=== PATIENT | female | born 1950 | race American Indian/Alaskan Native ===

== ENCOUNTER 2017-11-27 13:42 | Emergency (ER) | payer MEDICARE, OTHER ==
[~2017-11-27] VITALS: Ht 172.7 cm; Wt 104.3 kg
[~2017-11-27 13:42] MED LIST: ACET500; AMIT25 PO; ATOR40TA PO; CIPDEXSU; CIPHYDOTSU OT; CIPR500 PO; CYCL10 PO; ERGO50000 PO; FAMO20 PO; FISH1000 PO; HYDACE5; HYDACE5 PO; HYDACE5325 PO; KETO10 PO; LORA.5; NEOPOLHYDS OT; OXYACE5T PO; PARO20; PARO20 PO; ROSU10TA PO; RXOXYACE PO; SULTRIDS PO; TRAM50 PO
[2017-11-27] MEDS ORDERED: CEPH500 (14:17)
[2017-11-27 14:46] LABS: BASOPHILS ABSOLUTE AUTO 0.13 K/mm3 (0.00-0.23); BASOPHILS PERCENT AUTO 2 % (0-2); EOSINOPHILS ABSOLUTE AUTO 0.33 K/mm3 (0.00-0.68); EOSINOPHILS PERCENT AUTO 4 % (0-6); Hematocrit 45.1 % (33.0-51.0); Hemoglobin 14.8 g/dL (11.5-16.0); IMMATURE GRAN ABSOLUTE AUTO 0.01 K/mm3 (0.00-0.10); IMMATURE GRAN PERCENT AUTO 0 % (0-1); LYMPHOCYTES ABSOLUTE AUTO 1.73 K/mm3 (0.84-5.20); LYMPHOCYTES PERCENT AUTO 22 % (21-46); MONOCYTES ABSOLUTE AUTO 0.69 K/mm3 (0.16-1.47); MONOCYTES PERCENT AUTO 9 % (4-13); Mean Corpuscular HGB 31.3 pg (26.0-34.0); Mean Corpuscular HGB Conc 32.8 g/dL (31.5-36.5); Mean Corpuscular Volume 95 fL (80-100); Mean Platelet Volume 9.1 fL (9.1-12.4); NEUTROPHILS ABSOLUTE AUTO 5.11 K/mm3 (1.96-9.15); NEUTROPHILS PERCENT AUTO 64 % (41-73); Platelet Count 208 K/mm3 (150-400); RDW Coefficient Variation 12.2 % (11.7-14.2); RDW Standard Deviation 42.7 fL (35.1-46.3); Red Blood Cell Count 4.73 M/mm3 (3.80-5.20)
[2017-11-27 14:59] LABS: Alanine Aminotransfer (ALT/SGP 19 U/L (12-78); Albumin, Blood 3.6 g/dL (3.4-5.0); Albumin/Globulin Ratio 0.9 (0.8-1.8); Alk Phos 76 U/L (50-136); Anion Gap 4 mmol/L (6-16); Aspartate Aminotrans (AST/SGOT 15 U/L (12-37); Bilirubin, Total 0.4 mg/dL (0.1-1.0); Blood Urea Nitrogen 10 mg/dL (8-24); Bun/Creatinine Ratio 25.4 (12.0-20.0); CO2, Blood 32 mmol/L (21-32); Calcium, Blood 8.4 mg/dL (8.5-10.1); Chloride, Blood 106 mmol/L (98-108); Creatinine, Blood 0.39 mg/dL (0.40-1.00); Globulin, Blood 3.8 g/dL (2.2-4.0); Glomerular Filtration Rate >60 (60-); Glucose, Blood 126 mg/dL (70-99); Potassium, Blood 3.8 mmol/L (3.5-5.5); Sodium, Blood 142 mmol/L (136-145); Total Protein, Blood 7.4 g/dL (6.4-8.2)
[2018-05-11] MEDS ORDERED: BUPR100 PO (14:56)
[2018-05-11] MEDS ORDERED: ASPI81CH PO (14:57)
[2018-05-11] MEDS ORDERED: Norco 10-325 T1 EACH PO (16:19)
== END 2017-11-27 16:22 | disposition home or self-care (01) ==
LOC: ER 13:42
PROVIDERS: Physician Assistant
DX: I82.811 Embolism and thrombosis of superficial veins of right lower extremity (principal); J44.9 Chronic obstructive pulmonary disease, unspecified; F17.210 Nicotine dependence, cigarettes, uncomplicated; Z88.0 Allergy status to penicillin; Z79.899 Other long term (current) drug therapy; Z90.710 Acquired absence of both cervix and uterus
CPT/HCPCS: 36415; 80053; 85025; 93971; 99284

== ENCOUNTER → 2018-01-31 | Outpatient (CLI) | payer MEDICARE, OTHER ==
[~2018-01-31] MED LIST changes: +CEPH500
== END ==
LOC: LAB EV 07:16
DX: R05 Cough (principal)
CPT/HCPCS: 87070; 87077; 87185; 87205

== ENCOUNTER → 2018-11-27 | Outpatient (CLI) | payer MEDICARE, OTHER ==
[~2018-11-27] MED LIST changes: +ASPI81CH PO; +BUPR100 PO; +Norco 10-325 T1 EACH PO
== END ==
LOC: LAB EV 11:10 → LAB SHORT 11:10
DX: N39.0 Urinary tract infection, site not specified (principal)
CPT/HCPCS: 87077; 87086; 87186

== ENCOUNTER → 2018-12-26 | Outpatient (CLI) | payer MEDICARE, OTHER | END | disposition home or self-care (01) | LOC: LAB SHORT 13:00 → LAB EV 13:00 | DX: N39.0 Urinary tract infection, site not specified (principal) | CPT/HCPCS: 87086 ==

== ENCOUNTER → 2019-11-26 | Outpatient (CLI) | payer MEDICARE, OTHER | END | disposition home or self-care (01) | LOC: LAB EV 11:27 → LAB SHORT 11:27 | DX: N39.0 Urinary tract infection, site not specified (principal) | CPT/HCPCS: 87077; 87086; 87186 ==

== ENCOUNTER 2020-05-10 17:54 | Emergency (ER) | payer MEDICARE, OTHER ==
[~2020-05-10] VITALS: Ht 170.2 cm; Wt 104.3 kg
== END 2020-05-10 19:00 | disposition home or self-care (01) ==
LOC: ER 17:54
DX: N39.0 Urinary tract infection, site not specified (principal); Z88.0 Allergy status to penicillin; Z79.899 Other long term (current) drug therapy; Z79.82 Long term (current) use of aspirin; G47.30 Sleep apnea, unspecified; J44.9 Chronic obstructive pulmonary disease, unspecified; F17.210 Nicotine dependence, cigarettes, uncomplicated
CPT/HCPCS: 87077; 87086; 87186; 99282; A9270-GY

== ENCOUNTER → 2020-12-12 | Outpatient (CLI) | payer MEDICARE, OTHER | END | disposition home or self-care (01) | LOC: LAB SHORT 16:00 → PLD 16:00 | DX: N39.0 Urinary tract infection, site not specified (principal) | CPT/HCPCS: 87077; 87086; 87186 ==

== ENCOUNTER 2021-06-08 05:55 | Day surgery (SDC) | payer MEDICARE, OTHER ==
[~2021-06-08] VITALS: Ht 167.6 cm; Wt 106.0 kg
[2021-06-08] MEDS ORDERED: ANORO ELLIPTA1 EACH INH (06:38)
--- NOTE | 2021-06-08 07:20 | NUR ---
History, Chart, Medications and Allergies reviewed before start of procedure. Patient States Post-Procedure ride home has been arranged.
--- NOTE | 2021-06-08 09:07 | NUR ---
06/08/21 0907 Alejandra Torre USED ISOVUE-300 FOR THE CHOLANGIOGRAM 100 MLS.
--- NOTE | 2021-06-08 12:20 | NUR ---
CALLED AT TALKED TO PTS DAUGHTER NITESH ABOUT DC INSTRUCTIONS. ALL QUESTIONS ANSWERED. PT [place] [facility].
--- NOTE | 2021-06-08 12:47 | NUR ---
Discharge instructions reviewed with patient. Patient verbalizes understanding. Copy given to patient to take home. [place] [facility].
== END 2021-06-08 12:55 | disposition home or self-care (01) ==
LOC: ORSCMMR 05:55 → ORD 07:30 → ORSCMMR 07:30
PROVIDERS: Surgery
PROC: BF031ZZ Plain Radiography of Gallbladder and Bile Ducts using Low Osmolar Contrast (ICD-10-PCS; principal; 2021-06-08 07:30)
PROC: 0FT44ZZ Resection of Gallbladder, Percutaneous Endoscopic Approach (ICD-10-PCS; principal; 2021-06-08 07:30)
DX: K82.1 Hydrops of gallbladder (principal); K80.10 Calculus of gallbladder with chronic cholecystitis without obstruction; J44.9 Chronic obstructive pulmonary disease, unspecified; F41.8 Other specified anxiety disorders; E78.5 Hyperlipidemia, unspecified; I95.9 Hypotension, unspecified; F17.210 Nicotine dependence, cigarettes, uncomplicated; G47.33 Obstructive sleep apnea (adult) (pediatric); Z79.82 Long term (current) use of aspirin; Z79.899 Other long term (current) drug therapy
CPT/HCPCS: 74300; 88304; A9270; C1729; C1894; J0694; J1100; J2250; J2370; J2405; J2704; J3010; J7120

== ENCOUNTER 2021-06-20 09:40 | Emergency (ER) | payer MEDICARE, OTHER ==
[~2021-06-20] VITALS: Ht 167.6 cm; Wt 99.8 kg
[~2021-06-20 09:40] MED LIST changes: +ANORO ELLIPTA1 EACH INH
[2021-06-20 11:21] LABS: SARS-Cov-2 (COVID-19) PCR, MMC NEGATIVE (NEGATIVE)
== END 2021-06-20 10:11 | disposition home or self-care (01) ==
LOC: ER 09:40
PROVIDERS: Emergency Medicine
DX: Z01.812 Encounter for preprocedural laboratory examination (principal); Z20.822 Contact with and (suspected) exposure to COVID-19; J44.9 Chronic obstructive pulmonary disease, unspecified; F17.210 Nicotine dependence, cigarettes, uncomplicated; G47.30 Sleep apnea, unspecified; Z88.0 Allergy status to penicillin; Z79.899 Other long term (current) drug therapy; Z79.82 Long term (current) use of aspirin; Z90.49 Acquired absence of other specified parts of digestive tract
CPT/HCPCS: 99282; U0004

== ENCOUNTER 2022-03-17 18:56 | Inpatient (IN) | payer MEDICARE, OTHER ==
[~2022-03-17] VITALS: Ht 167.6 cm; Wt 104.3 kg
[2022-03-17 20:06] LABS: BASOPHILS ABSOLUTE AUTO 0.07 K/mm3 (0.00-0.23); BASOPHILS PERCENT AUTO 1 % (0-2); EOSINOPHILS ABSOLUTE AUTO 0.14 K/mm3 (0.00-0.68); EOSINOPHILS PERCENT AUTO 1 % (0-6); Hematocrit 51.4 % (33.0-51.0); IMMATURE GRAN ABSOLUTE AUTO 0.03 K/mm3 (0.00-0.10); IMMATURE GRAN PERCENT AUTO 0 % (0-1); LYMPHOCYTES ABSOLUTE AUTO 1.53 K/mm3 (0.84-5.20); LYMPHOCYTES PERCENT AUTO 14 % (21-46); MONOCYTES ABSOLUTE AUTO 1.02 K/mm3 (0.16-1.47); MONOCYTES PERCENT AUTO 10 % (4-13); Mean Corpuscular HGB Conc 33.1 g/dL (31.5-36.5); Mean Corpuscular Volume 97 fL (80-100); Mean Platelet Volume 8.8 fL (9.1-12.4); NEUTROPHILS ABSOLUTE AUTO 7.85 K/mm3 (1.96-9.15); NEUTROPHILS PERCENT AUTO 74 % (41-73); Platelet Count 169 K/mm3 (150-400); RDW Coefficient Variation 13.3 % (11.7-14.2); RDW Standard Deviation 47.3 fL (35.1-46.3); Red Blood Cell Count 5.32 M/mm3 (3.80-5.20); White Blood Cell Count 10.64 K/mm3 (4.00-11.30)
[2022-03-17 20:27] LABS: Albumin, Blood 3.6 g/dL (3.4-5.0); Albumin/Globulin Ratio 0.9 (0.8-1.8); Bilirubin, Total 0.5 mg/dL (0.1-1.0); Bun/Creatinine Ratio 24.1 (12.0-20.0); Calcium, Blood 8.5 mg/dL (8.5-10.1); Creatinine, Blood 0.5 mg/dL (0.40-1.00); Globulin, Blood 4.1 g/dL (2.2-4.0); Potassium, Blood 3.9 mmol/L (3.5-5.5); Total Protein, Blood 7.7 g/dL (6.4-8.2)
[2022-03-17 20:48] LABS: Base Excess Venous 2.4 mmol/L; Bicarbonate Venous 24.8 mmol/L (24.0-30.0); PCO2 Venous 61.4 mmHg (38-42); PO2 Venous 101 mmHg (38-42); pH Blood Venous 7.28 (7.34-7.37)
[2022-03-17 21:04] LABS: Influenza A, PCR NEGATIVE (NEGATIVE); Influenza B, PCR NEGATIVE (NEGATIVE); Resp Syncytial Virus, PCR NEGATIVE (NEGATIVE); SARS-Cov-2 (COVID-19) PCR, MMC NEGATIVE (NEGATIVE)
--- NOTE | 2022-03-18 00:32 | NUR ---
0030 recieved report from ED RN Eliana. Pt to go into room 13 PCU
[2022-03-18 00:48] LABS: Base Excess Venous 4.2 mmol/L; Bicarbonate Venous 25.5 mmol/L (24.0-30.0); PCO2 Venous 64.3 mmHg (38-42); pH Blood Venous 7.29 (7.34-7.37)
[2022-03-18 02:44] LABS: BASOPHILS ABSOLUTE AUTO 0.02 K/mm3 (0.00-0.23); BASOPHILS PERCENT AUTO 0 % (0-2); EOSINOPHILS PERCENT AUTO 0 % (0-6); Hematocrit 48.8 % (33.0-51.0); IMMATURE GRAN ABSOLUTE AUTO 0.02 K/mm3 (0.00-0.10); IMMATURE GRAN PERCENT AUTO 0 % (0-1); LYMPHOCYTES ABSOLUTE AUTO 0.44 K/mm3 (0.84-5.20); LYMPHOCYTES PERCENT AUTO 6 % (21-46); MONOCYTES ABSOLUTE AUTO 0.06 K/mm3 (0.16-1.47); MONOCYTES PERCENT AUTO 1 % (4-13); Mean Corpuscular HGB Conc 32.8 g/dL (31.5-36.5); Mean Corpuscular Volume 98 fL (80-100); NEUTROPHILS ABSOLUTE AUTO 6.51 K/mm3 (1.96-9.15); NEUTROPHILS PERCENT AUTO 92 % (41-73); Platelet Count 158 K/mm3 (150-400); RDW Coefficient Variation 13.2 % (11.7-14.2); RDW Standard Deviation 47.8 fL (35.1-46.3); White Blood Cell Count 7.05 K/mm3 (4.00-11.30)
[2022-03-18 03:03] LABS: Bun/Creatinine Ratio 21.5 (12.0-20.0); Calcium, Blood 8.1 mg/dL (8.5-10.1); Creatinine, Blood 0.51 mg/dL (0.40-1.00); Potassium, Blood 4.2 mmol/L (3.5-5.5)
--- NOTE | 2022-03-18 06:27 | NUR ---
Overnight without issues, VSS, BiPaP/CPAP on from 0130- now with good sats 5L bleeding in. Pain in back and Neck Chronic managed well with current regimine, will continue to monitor EMMY Dale
[2022-03-18 10:51] LABS: Adenovirus F 40/41 Not Detected (NOT DETECT); Astrovirus Not Detected (NOT DETECT); Campylobacter Sp Not Detected (NOT DETECT); Cryptosporidium Not Detected (NOT DETECT); Cyclospora Cayetanensis Not Detected (NOT DETECT); E. Coli O157 Not Detected (NOT DETECT); Entamoeba Histolytica Not Detected (NOT DETECT); Enteroaggregative E. coli-EAEC Not Detected (NOT DETECT); Enteropathogenic E. coli-EPEC Not Detected (NOT DETECT); Enterotoxigenic E. coli-ETEC Not Detected (NOT DETECT); Giardia Lamblia Not Detected (NOT DETECT); Norovirus GI/GII Not Detected (NOT DETECT); Plesiomonas Shigelloides Not Detected (NOT DETECT); Rotavirus A Not Detected (NOT DETECT); Salmonella Sp Not Detected (NOT DETECT); Sapovirus Not Detected (NOT DETECT); Shiga Toxin-prod E. coli-STEC Not Detected (NOT DETECT); Shigella/Enteroin E. coli-EIEC Not Detected (NOT DETECT); Vibrio Cholerae Not Detected (NOT DETECT); Vibrio Sp Not Detected (NOT DETECT); Yersinia Enterocolitica Not Detected (NOT DETECT)
--- NOTE | 2022-03-18 12:44 | NUR ---
AM NOTE: PATIENT ALERT AND ORIENTED X4. NEURO WNL. UP TO BSC WITH ONE PERSON ASSIST AND CANE. TELE SHOWING SINUS RHYTHM WITH HR 90'S. DENIES CHEST PAIN/PRESSURE. TRENDING TROPS. BP STABLE. ON 3L NASAL CANNULA SATING LOW 90'S. AT TIMES EXPIRATORY WHEEZE. RESP CARE BREATHING TREATMENTS. OCCASIONAL HARSH HACKING COUGH. PRODUCING SPUTUM. COMPLAINS OF LOWER BACK/NECK PAIN - MEDICATED PER EMAR. STOOL SAMPLE SENT THIS AM, RESULTS NEGATIVE. ISO REMOVED. PATIENT STATES SHE HAS BEEN HAVING INTERMIT DIARRHEA. LOOSE STOOL THIS AM X1. CALL LIGHT IN REACH. WILL CONTINUE TO MONITOR.
--- NOTE | 2022-03-18 18:48 | NUR ---
SHIFT SUMMARY: SEE PREVIOUS NOTE FOR UPDATES. NO ACUTE CHANGES. VITAL SIGNS REMAINS STABLE. OCCASIONAL HARSH COUGHING. PRN COUGH MEDICATION GIVEN. COMPLAINED OF LOWER BACK PAIN. MEDICATED PER EMAR. REMAINS ON 3L NASAL CANNULA. WORKING WITH CASE MANAGEMENT FOR HOME O2. EATING WELL. DENIES NEEDS. CALL LIGHT IN REACH. WILL CONTINUE TO MONITOR AND REPORT OFF.
--- NOTE | 2022-03-19 03:44 | NUR ---
Overnoc summary: overnight without issues, VSS, home CPAP 3L bleeding in for most of night, switching from NC 4L to CPAP with good sats ~88-95%, pain managed with Tramadol, but she wishes to switch back to her normal [place] 10 for better coverage, pain mostly in lower back, neck and some BLE neuropathy, will continue to monitor EMMY Dale
--- NOTE | 2022-03-19 13:50 | NUR ---
AM NOTE: PATIENT ALERT AND ORIENTED. NO NEW CHANGES THROUGHOUT THE MORNING, SEE PREVIOUS NOTES. TELE SHOWING SINUS TACH WITH HR 100-110'S. DENIES CHEST PAIN/PRESSURE. ON 4L NASAL CANNULA SATING LOW 90'S. WHEN SLEEPING WAS USING HOME CPAP WITH 3-4L BLEED IN. [place] IN TO DROP OFF AND EDUCATE ON TRILOGY. HOME O2 BROUGHT IN. HOME O2 EVAL DONE. COMPLAINS OF HEADACHE THROUGHOUT AM. SEE EMAR FOR MED ADMINISTRATION, TRYING TYLENOL NOW. UP TO BSC WITH ONE PERSON ASSIST. DENIES ANY OTHER NEEDS AT THIS TIME. WILL CONTINUE TO MONITOR.
--- NOTE | 2022-03-19 18:40 | NUR ---
SHIFT SUMMARY: NO ACUTE CHANGES THIS SHIFT. SEE AM NOTE FOR UPDATES. REMAINS ON 4L NASAL CANNULA SATING ABOVE 94%. NO CHANGES TO TELE - REMAINS SINUS TACH. COMPLAINS OF HEADACHE RELIEVED WITH BOTH ULTRAM AND TYLENOL. ABLE TO SHOWER TODAY. DENIES NEEDS AT THIS TIME. CALL LIGHT IN REACH. WILL CONITNUE TO MONITOR AND REPORT OFF TO ONCOMING RN.
--- NOTE | 2022-03-20 04:06 | NUR ---
Overnight with some SOB with activity, O2 needs slightly increased --> home CPAP on most the night with 3L bleed in, pain still there but better than previous night, RT conducting home O2 study, will continue to monitor EMMY Dale
[2022-03-20 17:53] LABS: PCO2 Arterial 78 mmHg (35-45); PO2 Arterial 63.4 mmHg (80-100); pH Blood Arterial 7.31 (7.35-7.45)
--- NOTE | 2022-03-20 18:10 | NUR ---
SHIFT SUMMARY: PATIENT MENTATION CHANGED FROM BASELINE. SLIGHTLY CONFUSED AND IMPULSIVE. THIS RN CALLED DR. SHAFER TO NOTIFY. ABG ORDERED. SEE RESULTS. PATIENT ALSO SUDDEN ONSET OF NAUSEA. NEW ORDERS FOR ZOFRAN. NAUSEA RELIEVED AND BIPAP WITH 4L 02 BLEED IN APPLIED. PATIENT RESTING AT THIS TIME. NO CHANGES IN TELE. WILL CONTINUE TO MONITOR AND REPORT OFF TO ONCOMING RN.
--- NOTE | 2022-03-20 19:57 | NUR ---
Assumed care 1900. Pt was on CPAP at start of shift. Noticed pt pulled off CPAP and placed back on 4L oxygen as RT was walking in. Pt seemed anxious and RR were 24-28. RT placed on BIPAP w/ oxygen bleed in. VSS on BIPAP and RR slowed to 20. Will continute to monitor. Pt appears more comfortable at this time.,
--- NOTE | 2022-03-20 22:12 | NUR ---
Pt pretty restless and has been pulling at BIPAP, frequent reminders to keep BIPAP on. I ask pt if she is in pain or nauseous and she declined. Frequent checks on pt.
--- NOTE | 2022-03-20 23:12 | NUR ---
Hospitalist called and updated on pt and MD wound like new ABGs in the AM after wearing the BIPAP overnight. PRN zofran also ordered.
--- NOTE | 2022-03-21 01:36 | NUR ---
Pt still remains restless and oriented x2-3. BIPAP still in place. Frequently asking pt if she is in pain, but declines pain and no prn meds. Also, asked pt if she is anxious from the BIPAP and she declines. Continues to be impulsive and not using call light, frequent round and bed alarm on.
[2022-03-21 03:51] LABS: PO2 Arterial 76.1 mmHg (80-100); pH Blood Arterial 7.35 (7.35-7.45)
[2022-03-21 03:52] LABS: PCO2 Arterial 74.9 mmHg (35-45)
--- NOTE | 2022-03-21 04:20 | NUR ---
shift nurse manager note: Pt has been on and off alert/lethargic tonight. Impulsive and not calling when needing to get up. Oriented x2-3. Restless overnight and did not sleep. Multiple attempts to make sure pt was comfortable and offered pain meds, but pt declined. BIPAP was worn all night and pt did pull at it several times, reminder of importance of BIPAP to pt. Repeat ABGs were done this AM with BIPAP on all night, see results. VSS on 4L bleed through BIPAP. Tele: ST 90-110s. Pt up to BSC several times with 1-2 person assist due to mentation. [address] and flushing. IV solumedrol given per orders.
--- NOTE | 2022-03-21 06:20 | NUR ---
Pt is desating to low to mid 80s when up to commode on BIPAP w/4L. Takes pt about 1 minute to recover once back in bed.
--- NOTE | 2022-03-21 18:51 | NUR ---
SHIFT SUMMARY: AGITATION, CONFUSION, IMPULSIVENESS CONTINUE T/OUT SHIFT. PT FREQUENTLY EXITING BED/CHAIR DESPITE ALARMS/REDIRECTION/CLOSER OBSERVATION/REPOSITIONING. PT ALSO FREQUENTLY PULLING O2 MASKS/TUBING/MONITORING DEVICES OFF. WHEN PT PULLS O2 MASK/TUBES OFF SHE DESATS QUICKLY TO LOW 80's AND FIGHTS STAFF WHEN TRYING TO REAPPLY. PT ORIENTED TO SELF, LOCATION. PT STATES "BECAUSE I'M CONFUSED" WHEN ASKED WHY SHE IS IN HOSPITAL. MABEL STERLING APPLIED APPROX 1722 FOR SAFETY, PT REMAINS IN BED BUT CONTINUES TO PULL AT O2 DEVICES. SIN TACH ON MONITOR 110-120s. PT UP TO BSC OFTEN W/1-2 PERSON ASSIST. WILL CONTINUE TO MONITOR AND TREAT ACCORDINGLY UNTIL CHANGE OF SHIFT.
--- NOTE | 2022-03-21 19:59 | NUR ---
Assumed care 1900. Pt is alert, but only oriented x1. She knows she is in the hospital, but said she was in [place]. VSS on 4L. HR 100-110s. Pt is agitated and hitting at staff, one time dose of zyprexa was given. Pt has been pulling off oxygen and tele lead as well as oxygen finger probe. MD notified and ordered the one time dose of zyprexa. Will continue to monitor. Pt remains in the pozy vest at thist time. Did get pt up to BSC w/ 2 person assist to void and bladder scanned afterward and only had about 100 left in bladder after up to BSC.
--- NOTE | 2022-03-21 22:16 | NUR ---
Pt became agitated and pulling off trilogy and not cooperative with staff. notified and prn ativan ordered. Pt has also been placed in wrist restraints.
[2022-03-21 22:29] LABS: Source, Urine Foley catheter
[2022-03-21 22:45] LABS: Bilirubin, Urine Neg (Neg); Blood, Urine 3+ (Neg); Glucose Qualitative, Urine Neg (Neg); Ketones, Urine 3+ (Neg); Leukocyte Esterase, Urine Neg (Neg); Nitrite, Urine Neg (Neg); Protein, Urine 3+ (Neg); Urobilinogen, Urine NORM (Normal)
[2022-03-21 22:51] LABS: Appearance, Urine Clear (Clear); Color, Urine Pale Yellow (P-Yellow)
[2022-03-21 22:53] LABS: Squamous Epithelial Cells Not Seen /hpf (Few)
[2022-03-21 22:54] LABS: Bacteria Few /hpf; White Blood Cells, Urine Rare /hpf (0-5)
[2022-03-22 00:04] LABS: Base Excess Venous 16.8 mmol/L; Bicarbonate Venous 36.6 mmol/L (24.0-30.0); PCO2 Venous 59.7 mmHg (38-42); PO2 Venous 48.8 mmHg (38-42); pH Blood Venous 7.44 (7.34-7.37)
--- NOTE | 2022-03-22 01:05 | NUR ---
Dr. Mckinney updated on pt status. Pt remains agitated and confused. Sometimes her language sounds almost like word salad and only oriented to self. Repeats sentences and only oriented to self. VSSon 4L. Her BP is elevated at times which is likely due to agitation. HR has been high 110-130s overnight. Dr. Mckinney added labs and more zyprexa and would like for me to call her back once her labs return. Pt is moving all extremites. Dubose in place now and restraints remain in place for safety and lines.
[2022-03-22 01:07] LABS: BASOPHILS ABSOLUTE AUTO 0.01 K/mm3 (0.00-0.23); BASOPHILS PERCENT AUTO 0 % (0-2); EOSINOPHILS PERCENT AUTO 0 % (0-6); Hematocrit 54.4 % (33.0-51.0); Hemoglobin 17.7 g/dL (11.5-16.0); IMMATURE GRAN ABSOLUTE AUTO 0.04 K/mm3 (0.00-0.10); IMMATURE GRAN PERCENT AUTO 0 % (0-1); LYMPHOCYTES ABSOLUTE AUTO 0.82 K/mm3 (0.84-5.20); LYMPHOCYTES PERCENT AUTO 8 % (21-46); MONOCYTES ABSOLUTE AUTO 1.55 K/mm3 (0.16-1.47); MONOCYTES PERCENT AUTO 15 % (4-13); Mean Corpuscular HGB 31.2 pg (26.0-34.0); Mean Corpuscular HGB Conc 32.5 g/dL (31.5-36.5); Mean Corpuscular Volume 96 fL (80-100); Mean Platelet Volume 8.6 fL (9.1-12.4); NEUTROPHILS ABSOLUTE AUTO 8.29 K/mm3 (1.96-9.15); NEUTROPHILS PERCENT AUTO 77 % (41-73); Platelet Count 232 K/mm3 (150-400); RDW Coefficient Variation 12.4 % (11.7-14.2); RDW Standard Deviation 44.7 fL (35.1-46.3); Red Blood Cell Count 5.68 M/mm3 (3.80-5.20); White Blood Cell Count 10.71 K/mm3 (4.00-11.30)
[2022-03-22 01:24] LABS: Albumin, Blood 3.6 g/dL (3.4-5.0); Anion Gap 5 mmol/L (6-16); Blood Urea Nitrogen 16 mg/dL (8-24); Bun/Creatinine Ratio 45.5 (12.0-20.0); CO2, Blood 39 mmol/L (21-32); Calcium, Blood 8.9 mg/dL (8.5-10.1); Chloride, Blood 93 mmol/L (98-108); Creatinine, Blood 0.35 mg/dL (0.40-1.00); Glomerular Filtration Rate 108 (60-); Glucose, Blood 157 mg/dL (70-99); Magnesium, Blood 2.5 mg/dL (1.6-2.4); Phosphorus, Blood 2.7 mg/dL (2.5-4.9); Potassium, Blood 3.8 mmol/L (3.5-5.5); Sodium, Blood 137 mmol/L (136-145)
--- NOTE | 2022-03-22 01:55 | NUR ---
Spoke with Dr. Mckinney about concern of mentation and speech (word salad and repeating herself over and over and the agitation), MD said she would order CT head STAT and ordered additional meds for agitation.
[2022-03-22 04:05] LABS: Base Excess Venous 16.5 mmol/L; Bicarbonate Venous 36.2 mmol/L (24.0-30.0); PCO2 Venous 64.3 mmHg (38-42); PO2 Venous 66.4 mmHg (38-42); pH Blood Venous 7.41 (7.34-7.37)
--- NOTE | 2022-03-22 04:57 | NUR ---
Spoke with Dr. Mckinney updated that CT results are back. Mentation unchanged. Informed to hold 0600 solumedrol.
--- NOTE | 2022-03-22 05:13 | NUR ---
Stave Planer Tender Note: Pt is alert, but very confused only oriented to self. Pt repeats herself over and over and is having what sounds like word salad. notified of agitation and confusion and a STAT CT head was ordered as well as VBGs, CBC, renal panel, ammonia and Mg. CT was negative for acute findings, told this RN to hold solumedrol this AM and said she would like day shift to look at solumedrol and possible contribution to mentation. VSS on 4L nasal canula most of the night. Only tolerated and kept trilogy on for 1hr. Pt keeps pulling at lines and pulling oxygen off. Pt remained in posy vest and was placed in soft wrist restraints to be able to keep pt safe and from pulling off oxygen. Dubose was placed. Tele: sinus tach 120-130s. BP has been high overnight, especially when really agitated. PRN zyprexa and ativan have been given for agitation.
--- NOTE | 2022-03-22 14:16 | NUR ---
UPDATE PT AWOKE FROM A NAP EXTREMELY AGITATED AND ANGRY. THIS RN AND TWO OTHER STAFF WENT TO THE BEDSIDE TO ATTEMPT TO REDIRECT AND CALM THE PT. THIS WAS UNSUCCESSFUL. PROVIDER WAS NOTIFIED AND ORDERS WERE GIVEN TO TRANSFER TO ICU TO COMPLY WITH BIPAP POLICIES.
--- NOTE | 2022-03-22 15:00 | NUR ---
INITIAL ASSESSMENT PATIENT ARRIVED TO ICU FROM PCU AROUND 1435. PATIENT ORIENTED TO SELF, DAUGHTER AND FOLLOWING SIMPLE COMMANDS. PATIENT STATES SHE LIVES WITH HER MOTHER; UNKNOWN IF THIS IS TRUE. SPEECH GARBLED AND DIFFICULT TO UNDERSTAND, ESPECIALLY WITH AVAPS MASK ON. PATIENT WEAK BUT ABLE TO MOVE ALL EXTREMITIES AND ASSIST WITH REPOSITIONING. PATIENT ANXIOUS WHEN AVAPS MASK ON. PATIENT HAS TEMP OF 99.5 DEGREES FAHRENHEIT. PATIENT ON 3 L NC WHEN ARRIVED. PATIENT PLACED ON AVAPS, 335 MLS OF VOLUME WITH 3 L O2 BLEED IN. PER REPORT, PATIENT WEARS 3 L NC DURING DAY AT HOME AND WEARS THE AVAPS, WITH SAME SETTINGS, AT HOME AT NIGHT. LUNGS DIMINISHED THROUGHOUT. CRACKLES NOTED IN LOWER LOBES. PATIENT NOTED TO HAVE MOIST COUGH. SHALLOW BREATHS NOTED. PATIENT IN ST, HR IN THE 120S. SBP LOW 100S TO 120S. 1+ EDEMA NOTED TO BLES. PATIENT UNABLE TO EAT ON MASK. HYPOACTIVE BOWEL SOUNDS NOTED. LAST BM DOCUMENTED YESTERDAY. LEDEZMA DRAINING DARK ERIN COLORED URINE. BRUISES NOTED TO ABD. COCCYX REDDENED; BLANCHEABLE. MOUTH DRY. NS INFUSING AT 100 MLS/ HOUR. BED LOW, CALL LIGHT IN REACH. WILL CONTINUE TO MONITOR PATIENT FREQUENTLY THROUGHOUT SHIFT.
--- NOTE | 2022-03-22 16:50 | NUR ---
PATIENT AFEBRILE. HR IN THE 1-TEENS. SBP 1-TEENS TO 120S. PRECEDEX AT 0.7 MCG/ KG/ HOUR. NO OTHER ACUTE CHANGES TO NOTE ON AT THIS TIME.
--- NOTE | 2022-03-22 19:00 | NUR ---
ASSUMED CARE ASSUMED CARE OF PATIENT. REMAINS ON AVAPS PER ORDER. PT IS AWAKE AND ALERT, BUT DROWSY. ORIENTED TO SELF. FOLLOWS SIMPLE COMMANDS. MOVES ALL EXTREMITIES. REACHES FOR MASK AND PULLS ON IV LINES/LEDEZMA WHEN RESTRAINTS OFF. BILATERAL SOFT WRIST RESTRAINTS IN PLACE. MONITOR SHOWS NSR, RATE 90s-100s. BP 94/67 AT THIS TIME. PRECEDEX INFUSING AT 0.4MCG/KG/HR. NS INFUSING AT 100CC/HR. LEDEZMA PATENT AND DRAINING TO GRAVITY WITH SMALL AMOUNT DARK ERIN URINE. SEE SHIFT ASSESSMENT FOR FULL ASSESSMENT.
--- NOTE | 2022-03-22 19:00 | NUR ---
SHIFT SUMMARY PATIENT PLACED IN RESTRAINTS AND ON AVAPS MACHINE AFTER ARRIVING FROM PCU. PATIENT REMAINED ANXIOUS AND PULLING AT RESTRAINTS. PATIENT ORIENTED TO SELF, DAUGHTER AND FOLLOWING SOME SIMPLE COMMANDS. PATIENT IMMEDIATELY FORGETTING NOT TO PULL ON LINES/ CORDS AND MASK RIGHT AFTER NURSE ASKED PATIENT NOT TO. PATIENT STARTED ON PRECEDEX TO TRY AND HELP WITH AGITATION. PRECEDEX TOOK A WHILE TO TAKE EFFECT ON PATIENT BUT ONCE IT DID IT DROPPED PATIENT'S BLOOD PRESSURE. PRECEDEX PLACED ON SB UNTIL BP RECOVERED AND THEN PLACED BACK ON LOW DOSE PRECEDEX FOR ESCALATION IN AGITATION ONCE AGAIN. GRANDSON STATED THAT PATIENT TAKES NORCO AT HOME FOR CHRONIC HIP AND LEG PAIN. DR. CHAPMAN CALLED AND INFORMED AND PRN NORCO ORDERED (IF PATIENT ABLE TO SWALLOW). PATIENT REMAINS WEAK BUT ABLE TO MOVE ALL EXTREMITIES. PATIENT HAD SLIGHT TEMP WHEN FIRST ARRIVED BUT WAS AFEBRILE AT LAST CHECK. PATIENT HAS REMAINED ON HOME AVAP WITH VOLUME AT 335 MLS AND WITH 3 L O2 BLEED IN. PATIENT HAS CONTINUED TO HAVE MOIST COUGH. LUNGS REMAINED DIMINISHED. PATIENT SR TO ST, HR 90S TO 120S. SBP 60S TO 130S. NO BM THIS SHIFT. PATIENT REMAINED NPO. LEDEZMA DRAINED 300 MLS OF DARK ERIN COLORED URINE. NO CHANGES TO SKIN. PATIENT REPOSITIONED Q2H. NS REMAINED AT 100 MLS/ HOUR. PRECEDEX IS CURRENTLY AT 0.4 MCG/ KG/ HR. BLOOD SUGAR 110. PATIENT'S DAUGHTER AND GRANDSON CAME IN TO VISIT. BED LOW, CALL LIGHT IN REACH. REPORT HAS BEEN GIVEN TO ASSUMING AUTOCAD DETAILER NURSE.
[2022-03-22 19:10] LABS: PCO2 Arterial 56.6 mmHg (35-45); pH Blood Arterial 7.45 (7.35-7.45)
--- NOTE | 2022-03-22 22:20 | NUR ---
HYPOTENSION/DECREASED UO DR. CHAPMAN NOTIFIED OF BP 60/D AND OF DECREASED URINE OUTPUT. NEW ORDER RECEIVED FOR A 500CC NS BOLUS AND TO CHECK BNP IN AM.
[2022-03-23 04:01] LABS: BASOPHILS ABSOLUTE AUTO 0.01 K/mm3 (0.00-0.23); BASOPHILS PERCENT AUTO 0 % (0-2); EOSINOPHILS ABSOLUTE AUTO 0.06 K/mm3 (0.00-0.68); EOSINOPHILS PERCENT AUTO 1 % (0-6); Hematocrit 47.2 % (33.0-51.0); Hemoglobin 15.1 g/dL (11.5-16.0); IMMATURE GRAN ABSOLUTE AUTO 0.01 K/mm3 (0.00-0.10); IMMATURE GRAN PERCENT AUTO 0 % (0-1); LYMPHOCYTES ABSOLUTE AUTO 1.16 K/mm3 (0.84-5.20); LYMPHOCYTES PERCENT AUTO 17 % (21-46); MONOCYTES ABSOLUTE AUTO 0.96 K/mm3 (0.16-1.47); MONOCYTES PERCENT AUTO 14 % (4-13); Mean Corpuscular Volume 100 fL (80-100); Mean Platelet Volume 8.5 fL (9.1-12.4); NEUTROPHILS ABSOLUTE AUTO 4.79 K/mm3 (1.96-9.15); NEUTROPHILS PERCENT AUTO 69 % (41-73); Platelet Count 165 K/mm3 (150-400); RDW Coefficient Variation 12.8 % (11.7-14.2); RDW Standard Deviation 47.5 fL (35.1-46.3); Red Blood Cell Count 4.72 M/mm3 (3.80-5.20); White Blood Cell Count 6.99 K/mm3 (4.00-11.30)
[2022-03-23 04:19] LABS: Albumin, Blood 2.5 g/dL (3.4-5.0); Albumin/Globulin Ratio 0.8 (0.8-1.8); Bilirubin, Total 0.7 mg/dL (0.1-1.0); Bun/Creatinine Ratio 57.4 (12.0-20.0); Calcium, Blood 7.6 mg/dL (8.5-10.1); Creatinine, Blood 0.54 mg/dL (0.40-1.00); Potassium, Blood 3.4 mmol/L (3.5-5.5); Total Protein, Blood 5.5 g/dL (6.4-8.2)
--- NOTE | 2022-03-23 06:29 | NUR ---
SHIFT SUMMARY REMAINED ON AVAPS T/O NOC. CHANGED TO 4LNC THIS AM AT PT'S REQUEST. RESPIRATIONS EVEN AND UNLABORED AT THIS TIME. FREQUENT MOIST COUGH NOTED. DENIES C/O SOB/DYSPNEA. MONITOR SHOWS SR -ST, RATE 90s-110s. BP STABLE AFTER 50CC NS IV BOLUS GIVEN. AFEBRILE. TOLERATED SIPS OF WATER. MEDICATED WITH NORCO 10/325MG PO X 2 DOSES FOR C/O BACK PAIN. PT STATES GOOD RELIEF AFTER. LEDEZMA PATENT AND DRAINING ERIN URINE. ONLY 300CC THIS SHIFT. MD IS AWARE OF DECREASED URINE OUTPUT. USED BEDPAN X 1 FOR LARGE FORMED STOOL AND THEN WAS INCONTINENT OF LARGE AMOUNT OF [place] STOOL. NS INFUSING AT 100CC/HR PER ORDER. RESTRAINTS DC'D AT 0400. PT REMAINS CALM AND COOPERATIVE AT THIS TIME. ORIENTED TO SELF ONLY. PT STATES SHE IS IN [facility] AND THE YEAR IS 1969. WILL REPORT TO ONCOMING RN WHEN AVAILABLE.
--- NOTE | 2022-03-23 18:15 | NUR ---
SUMMARY PT RESTING IN BED. A/O TO PERSON, PLACE, EVENT, FAMILY, AND SURROUNDINGS. PT ABLE TO USE CALL LIGHT APPROPRIATELY. GOT UP TO RECLINER TODAY AND UP TO BSC SEVERAL TIMES TODAY WITH ONE PERSON ASSIST. SPEECH THERAPY EVALUATED PT TODAY AND PROVIDED MEAL AND MED PLAN. PT HAS MOIST COUGH AND IS GETTING THICK REYEZ SPUTUM UP. HAS BEEN ON NC O2 ALL DAY WITHOUT ISSUE. NO OTHER CHANGES THIS SHIFT.
--- NOTE | 2022-03-23 21:00 | NUR ---
Assumed Care. AOx3, forgetful at times, easily redirectable. follows commands. Able to move self in bed, and get to sitting position. LS coarse with exp wheezes, currently receiving breathign treatment. Cough is moist, with small production, bruce color. SOB with exertion but does well moving in bed. HR sinus tach rate 90-100's. Denies cp, palpitations. Edema to BLE elevated on pillows. BTx4, States she has several BM today. Cath is patent and draining. Bruising to abdomin and redness to coccyx (blanchable). Medicated for pain in lower back per emar. call light in reach, bed in low position, bed alarm on.
[2022-03-24 04:02] LABS: Bun/Creatinine Ratio 40.2 (12.0-20.0); Calcium, Blood 8.1 mg/dL (8.5-10.1); Creatinine, Blood 0.37 mg/dL (0.40-1.00); Magnesium, Blood 2.1 mg/dL (1.6-2.4); Potassium, Blood 4.3 mmol/L (3.5-5.5)
--- NOTE | 2022-03-24 05:56 | NUR ---
SHIFT SUMMARY: AOx3 with periods of forgetfulness and confusion during the night. Easily re-directed, followed directions. CLAIRE. Able to move self in bed. LS coarse with occational wheeze. 5L NC to keep sats .90%. Cough moist, sob with exertion. No production. HR sinus rate of 80's, +1 edema to BLe. Chronic pain in lower back, oxycodone given twice. Abd soft, non-tender, fair appetite, states bm yesterday. Dubose output mary anne 400cc. Redness on bottom and bruising on abd all improving. Vitals have been stable. Able to use call light appropritaly. Bed alarm on and bed in low position.
--- NOTE | 2022-03-24 15:02 | NUR ---
PT A/O X4 TODAY. HAS BEEN USING CALL LIGHT APPROPRIATELY. ONE PERSON ASSIST TO BSC. PT IS LESS IMPULSIVE TODAY. WORKED WITH PT AND OT TODAY, MORE STEADY ON FEET TODAY. PT TOLERATING MEALS, NO COUGHING OR CHOKING. PT DOWNGRADED TO MEDICAL STATUS TODAY. NO SIGN OF DISTRESS. TRANSFERED TO ROOM 331, REPORT GIVEN TO SHANNON BOOHT.
--- NOTE | 2022-03-24 17:03 | NUR ---
SHIFT SUMMARY PATIENT TRANSFERRED FROM ICU AT 1510. PATIENT SETTLED INTO ROOM. PATIENT DENIES PAIN, NAUSEA, AND SHORTNESS OF BREATH. PATIENT ON 3L VIA N/C, SATURATING AT 94%. PATIENT SBA WITH FWW. LEDEZMA IS PATENT AND DRAINING TO GRAVITY. PATIENT IS EATING AND DRINKING WELL. PATIENT HAD DAUGHTER AT BEDSIDE FOR MOST OF SHIFT. PATIENT IS PLEASANT AND COOPERATIVE WITH CARE.
[2022-03-24] MEDS ORDERED: Zanaflex2 M1 PO (20:51)
--- NOTE | 2022-03-24 23:05 | NUR ---
CPAP CONTINUES TO GO OFF, O2 SATS MID TO LOW 80'S. RT NOTIFIED AND WILL ASSESS/ADDRESS ISSUE. CALL LIGHT IN REACH
--- NOTE | 2022-03-25 03:48 | NUR ---
CUSTOMER ASSOCIATE SUMMARY JOKING WITH NURSE AT SHIFT COMMENCE. TOLERATED HS MEDS WELL. O2 PER NC AT 3L/MIN, BUT WHEN CHANGED TO CPAP AT NIGHT, CPAP MACHINE MADE LOUD ALARMS DEEP INTO THE NIGHT, RT AND STAFF UNABLE TO KEEP MACHINE SILENT, RT VOICED DUE TO "LEAK" IN THE SEAL AND THAT PT FELT IT WS TOO TIGHT WHEN RT TRIED TO REMEDY IT. CPAP DC'D AND PLACED ON O2 PER NC. RESTING QUIETLY, SATS IN THE LOW 90'S AT THIS TIME. PT SCHEDULED TO BE DISCHARGED LATER TODAY - HOME ON HOME HEALTH. CALL LIGHT IN REACH
--- NOTE | 2022-03-25 16:57 | NUR ---
SHIFT SUMMARY PATIENT MEDICATED FOR PAIN X2, MUSCLE SPASMS X2. PATIENT DENIES NAUSEA AND SHORTNESS OF BREATH. PATIENT ON 3L VIA N/C. PATIENT MAINTAINING SATS ABOVE 90%. PATIENT USES CPAP AT NIGHT. PATIENT IS A SBA WITH A FWW. PATIENT WORKED WITH PT AND OT TODAY. LEDEZMA DISCONTINUED THIS SHIFT, PATIENT URINATING WITHOUT DIFFICULTY. PATIENT SLEPT ON AND OFF THROUGHOUT SHIFT. PATIENT DID GET UP TO CHAIR FOR MEALS. PATIENT IS EATING AND DRINKING WELL. PATIENT IS PLEASANT AND COOPERATIVE WITH CARE. POSSIBLE DISCHARGE TOMORROW.
--- NOTE | 2022-03-26 06:08 | NUR ---
ACCOUNTS RECEIVABLE ADMINISTRATOR SUMMARY ADMITTED FOR ACUTE RESPIRATORY FAILURE WITH HYPOXIA. PT IS FULL CODE. SHE IS CURRENTLY ON 2L BY CT AND SATTING FINE. HER BP DID DROP TO 72/46 MANUALLY WITH ADMINISTRATION OF 4 MG TIZANIDINE. GIVEN A 500 ML BOLUS AND IMPROVED TO 98/72; MAINTENANCE NS STARTED AT 75 ML/HR. PT CONTINUES TO HAVE CHRONIC PAIN WITH LITTLE MANAGEMENT FROM THE PAIN MEDICATION. DOSAGE OF TIZANIDINE CHANGED TO HOME DOSE OF 2 MG. SHE REPORTS FEELING IMPROVED WITH FLUIDS.
[2022-03-26] MEDS ORDERED: Norco 5-325 Ta1 EACH PO (11:52)
[2022-03-26] MEDS ORDERED: DOXY100 PO (11:54)
[2022-03-26] MEDS ORDERED: VISBIOME 112.51 EACH PO (11:55)
[2022-03-26] MEDS ORDERED: Cyclobenzaprine5 MG PO (11:56)
[2022-03-26] MEDS ORDERED: PRED20 PO (11:58)
--- NOTE | 2022-03-26 14:07 | NUR ---
PATIENT WAS DISCHARGED AND ESCORTED OUT VIA WHEELCHAIR TO DAUGHTER AT [facility] AT 1340. REVIEWED PAPERWORK WITH PATIENT AND SENT HOME WITH EDUCATIONAL MATIERALS. PATIENT DEMONSTRATED USE OF MOBILE OXYGEN BEFORE DISCHARGE. NO DISTRESS NOTED.
--- NOTE | 2022-03-26 14:20 | NUR ---
THIS SCCM ADMINISTRATOR HAS REVIEWED ALL ASSESSMENTS AND NOTES BY TRANSPORTATION MUSEUM HELPER JARIED AND AGREES WITH THEM.
== END 2022-03-26 13:40 | disposition home health service (06) | DRG 189 ==
LOC: ER 18:56 → PCU 22:04 → ERHOLD 23:37 → PCU 23:37 → ICUW 03-22 15:23 → MEDS 03-24 15:26
PROVIDERS: Emergency Medicine; Internal Medicine; Physician Assistant; ADMIT Family Medicine
PROC: 5A09357 Assistance with Respiratory Ventilation, Less than 24 Consecutive Hours, Continuous Positive Airway Pressure (ICD-10-PCS; principal; 2022-03-17)
DX: J96.01 Acute respiratory failure with hypoxia (principal); G92.8 Other toxic encephalopathy; I21.A1 Myocardial infarction type 2; J44.1 Chronic obstructive pulmonary disease with (acute) exacerbation; R65.10 Systemic inflammatory response syndrome (SIRS) of non-infectious origin without acute organ dysfunction; Z20.822 Contact with and (suspected) exposure to COVID-19; J96.02 Acute respiratory failure with hypercapnia; E87.6 Hypokalemia; Z78.1 Physical restraint status; G47.33 Obstructive sleep apnea (adult) (pediatric); M19.90 Unspecified osteoarthritis, unspecified site; F17.210 Nicotine dependence, cigarettes, uncomplicated; Z90.49 Acquired absence of other specified parts of digestive tract; Z90.710 Acquired absence of both cervix and uterus; Z88.0 Allergy status to penicillin; Z99.81 Dependence on supplemental oxygen; Z71.6 Tobacco abuse counseling; Z79.82 Long term (current) use of aspirin; Z79.899 Other long term (current) drug therapy
CPT/HCPCS: 0241U; 36415; 36600; 70450; 71045; 80048; 80053; 80069; 81001; 82140; 82803; 82947; 83605; 83735; 83880; 84145; 84484; 85025; 87040; 87070; 87205; 87507; 92526; 92610; 93005; 93010; 94640; 94644; 94660; 94664; 94760; 94761; 94762; 96365; 96375; 97110; 97116; 97162; 97165; 97530; 97535; 99285-25; A9270; C1751; J0456; J0696; J1650; J2060; J2405; J2930; J3010; J3480; J7030; J7040; J7050; J7060

== ENCOUNTER → 2022-06-03 | Outpatient (CLI) | payer MEDICARE, OTHER | END | disposition home or self-care (01) | LOC: LAB 11:06 | DX: R32 Unspecified urinary incontinence (principal) ==

== ENCOUNTER → 2022-12-11 | Outpatient (CLI) | payer MEDICARE, OTHER ==
[~2022-12-11] MED LIST changes: +Cyclobenzaprine5 MG PO; +DOXY100 PO; +Norco 5-325 Ta1 EACH PO; +PRED20 PO; +VISBIOME 112.51 EACH PO; +Zanaflex2 M1 PO
== END ==
LOC: LAB SHORT 11:31
DX: N39.0 Urinary tract infection, site not specified (principal)
CPT/HCPCS: 87086

== ENCOUNTER → 2025-09-27 | Outpatient (CLI) | payer MEDICARE, OTHER | LOC: LAB 10:46 → LAB SHORT 10:46 | DX: R35.0 Frequency of micturition (principal) | CPT/HCPCS: 87086 ==